=== PATIENT | female | born 1975 | race Caucasian/White ===

== ENCOUNTER 2016-07-10 19:59 | Emergency (ER) | payer OTHER ==
[~2016-07-10 19:59] MED LIST: ADV10050 INH; BENZ100C70 PO; GUAI118L94 PO; HYDR-3498 PO; IBUP-1542 PO; LORA-186 PO; MONT10TA21 PO; ONDA-43 PO; RANI150T9 PO
[2016-07-10] MEDS ORDERED: NPH10OT LEFT EAR (20:36)
--- NOTE | 2016-07-10 20:56 | ERD ---
ER Documentation Chief Complaint Date/Time DATE: 07/10/16 TIME: 20:54 Chief Complaint left ear pain x 2 days HPI This is a 41-year-old female presenting to the emergency department complaining of left ear canal pain for the past 2 days. Patient rates the pain as constant , mild to moderate in severity and describes it as dull. Patient states that she thought that she might have had something going to her left ear therefore she used a Q-tip 2 days ago. She denies any fevers, ear discharge, tinnitus, sore throat, chest pain or shortness of breath. ROS 10 systems reviewed and are negative except as per history of present illness. Medications Home Meds Active Scripts Neomycin/Polymyxin/Hydrocort* (Cortisporin* Otic) 10 Ml Susp, 4 DROP LEFT EAR QID for 7 Days, EA Prov:JADEN RAI PA-C 07/10/16 Hydrocodone Bit-Acetaminophen* ([place]*) 5-325 Mg Tab, 1 TAB PO QHS Y for PAIN, # 10 TAB 0 Refills Prov:NAVNEET BABIN PA-C 02/24/15 Ibuprofen* (Motrin*) 600 Mg Tab, 600 MG PO BID, #30 TAB 0 Refills Prov:NAVNEET BABIN PA-C 02/24/15 Guaifenesin-Codeine Phosphate* (Guaifenesin* with Codeine Liq) 120 Ml Liquid, 5 ML PO Q6 Y for COUGH, #60 Prov:REGIS AMADOR NP 08/23/14 Reported Medications Montelukast Sodium* (Singulair*) 10 Mg Tablet, 10 MG PO HS, TAB 07/06/14 Ranitidine Hcl* (Zantac*) Unknown Strength Tablet, PO, TAB 07/06/14 Ondansetron Hcl* (Zofran*) Unknown Strength Tab, PO Q4H Y for NAUSEA AND OR VOMITING, TAB 07/06/14 Benzonatate* (Tessalon Perle*) 100 Mg Capsule, 100 MG PO Q8H Y for COUGH, CAP 07/06/14 Loratadine* (Claritin*) 10 Mg Tablet, 10 MG PO DAILY, TAB 07/06/14 Salmeterol Xinaf-Fluticasone* (Advair*) Unknown Strength Inhaler, INH BID, INH 07/06/14 Allergies Allergies: Coded Allergies: No Known Drug Allergies (Verified Allergy, Unknown, 07/06/14) PMhx/Soc Anesthesia Reaction: No Hx Neurological Disorder: No Hx Respiratory Disorders: No Hx Cardiac Disorders: No Hx Psychiatric Problems: No Hx Miscellaneous Medical Probl: No Hx Alcohol Use: No Hx Substance Use: No Hx Tobacco Use: No Physical Exam Physical Exam Const: Well-developed well-nourished no acute distress Head: Atraumatic Eyes: Normal Conjunctiva ENT: Normal Nose and Mouth. Mild pinna and tragus tenderness of the left ear, mild inflammation the left ear Neck: Full range of motion..~ No meningismus. Resp: Clear to auscultation bilaterally Cardio: Regular rate and rhythm, no murmurs Abd: Soft, non tender, non distended. Normal bowel sounds Skin: No petechiae or rashes Back: No midline or flank tenderness Ext: No cyanosis, or edema Neur: Awake and alert Psych: Normal Mood and Affect Procedures/MDM This is a 41-year-old female presenting to the emergency department complaining of left ear pain which is likely due to irritation from Q-tip versus early otitis externa. There was no evidence of otitis media, mastoiditis, cholesteatoma, and tympanic membrane perforation. Patient will be empirically treated for possible otitis externa left ear. I discussed to follow-up with her primary care physician for further evaluation management DISPOSITION: hemodynamically stable for home. Prescription for Cortisporin was given to patient. Discussed to return to the ED for worsening condition or not improving as expected. Patient's guardian agreed and understood with this plan Departure Diagnosis: Primary Impression: Left ear pain Condition: Stable Patient Instructions: Earache W/O Infection (Adult), External Ear Infection ( Adult) Referrals: JOSH EVANS (PCP) Additional Instructions: FOLLOW UP WITH YOUR PRIMARY CARE PHYSICIAN TOMORROW.Return to this facility if you are not improving as expected. Take all medicines as directed. Return to this facility if you are not improving as expected. JADEN RAI PA-C July 10, 2016 20:56
== END 2016-07-10 20:37 | disposition home or self-care (01) ==
LOC: E/R 19:59
DX: H92.02 Otalgia, left ear (principal)
CPT/HCPCS: 99283

== ENCOUNTER 2016-09-06 14:08 | Inpatient (IN) | payer OTHER ==
[~2016-09-06] VITALS: Ht 154.9 cm; Wt 101.9 kg
[~2016-09-06 14:08] MED LIST changes: +NPH10OT LEFT EAR
[2016-09-06] MEDS ORDERED: ALBUTEROL 0.5% (NEB) 2.5 MG/0.5 ML AMP INH STA ×2 (15:28→18:45)
[2016-09-06] MEDS ORDERED: ASPIRIN 325 MG TAB PO STA (15:28)
[2016-09-06] MEDS ORDERED: METHYLPREDNISOLONE 125 MG INJ IV STA (15:28)
[2016-09-06] MEDS ORDERED: SOD CHLORIDE 0.9% 1,000 ML IV STA (15:28)
[2016-09-06] MEDS ORDERED: IPRATROPIUM (NEB) 0.5 MG/2.5 ML AMP INH STA ×2 (15:28→18:45)
[2016-09-06] MEDS ORDERED: LORAZEPAM 2 MG INJ IV ONE (15:30)
--- NOTE | 2016-09-06 15:46 | ERD ---
ER Documentation Chief Complaint Date/Time DATE: 09/06/16 TIME: 15:31 Chief Complaint MID CHEST WALL CONSTANT PRESSURE/NON-RAD/NON-PROVOKED/NAUSEA/DIZZY X7AM HPI This is a 41-year-old female with a known history of asthma. The patient indicates that about 5 hours prior to arrival she developed some difficulty breathing which was consistent her previous asthma exacerbations. She utilized her nebulizer treatments with no improvement of her symptoms. The dyspnea persisted and she started to become very anxious, nervous, with palpitations. She started to feel chest pain which she described as stabbing in nature to both the left and right chest wall. There is no chest pressure that radiates to the neck arm back or jaw. The patient stated she also started to feel very dizzy in addition with her difficulty breathing. She has had no recent travel or prolonged immobilization and denies any shortness of breath at rest or exertion. She never required intubation in the past for asthma but indicates she has had multiple previous hospital admissions and emergency room visits for her asthma. She denies a productive or nonproductive cough. She has had no fevers or shaking or chills. She denies any numbness or tingling of her upper or lower extremities ROS All systems reviewed and are negative except as per history of present illness. Medications Home Meds Active Scripts Prednisone* (Prednisone*) 20 Mg Tab, 60 MG PO DAILY for 5 Days, TAB Prov:PETTY GAGE 09/06/16 Neomycin/Polymyxin/Hydrocort* (Cortisporin* Otic) 10 Ml Susp, 4 DROP LEFT EAR QID for 7 Days, EA Prov:JADEN RAI PA-C 07/10/16 Hydrocodone Bit-Acetaminophen* ([place]*) 5-325 Mg Tab, 1 TAB PO QHS Y for PAIN, # 10 TAB 0 Refills Prov:NAVNEET BABIN PA-C 02/24/15 Ibuprofen* (Motrin*) 600 Mg Tab, 600 MG PO BID, #30 TAB 0 Refills Prov:NAVNEET BABIN PA-C 02/24/15 Guaifenesin-Codeine Phosphate* (Guaifenesin* with Codeine Liq) 120 Ml Liquid, 5 ML PO Q6 Y for COUGH, #60 Prov:REGIS AMADOR NP 08/23/14 Reported Medications Montelukast Sodium* (Singulair*) 10 Mg Tablet, 10 MG PO HS, TAB 07/06/14 Ranitidine Hcl* (Zantac*) Unknown Strength Tablet, PO, TAB 07/06/14 Ondansetron Hcl* (Zofran*) Unknown Strength Tab, PO Q4H Y for NAUSEA AND OR VOMITING, TAB 07/06/14 Benzonatate* (Tessalon Perle*) 100 Mg Capsule, 100 MG PO Q8H Y for COUGH, CAP 07/06/14 Loratadine* (Claritin*) 10 Mg Tablet, 10 MG PO DAILY, TAB 07/06/14 Salmeterol Xinaf-Fluticasone* (Advair*) Unknown Strength Inhaler, INH BID, INH 07/06/14 Allergies Allergies: Coded Allergies: No Known Drug Allergies (Verified Allergy, Unknown, 07/06/14) PMhx/Soc Anesthesia Reaction: No Hx Neurological Disorder: No Hx Respiratory Disorders: No Hx Cardiac Disorders: No Hx Psychiatric Problems: No Hx Miscellaneous Medical Probl: No Hx Alcohol Use: No Hx Substance Use: No Hx Tobacco Use: No Physical Exam Vitals Vital Signs Date Time Temp Pulse Resp B/P Pulse Ox O2 Delivery O2 Flow Rate FiO2 09/06/16 22:21 117 19 114/57 96 Nasal Cannula 2.0 09/06/16 20:28 99 18 115/70 100 Mask 09/06/16 19:21 83 16 99 Nasal Cannula 2.0 09/06/16 18:29 92 16 113/69 98 Room Air 09/06/16 16:17 81 17 144/88 96 Mask 10.0 09/06/16 16:00 79 16 100 Nasal Cannula 3.0 09/06/16 14:25 98.0 73 18 141/83 98 Physical Exam Constitutional:Well-developed. Well-nourished. Patient is very tearful in mild acute respiratory distress. HEENT:Normocephalic. Atraumatic.Pupils were equal round reactive to light. Moist mucous membranes.No tonsillar exudates. Neck: No nuchal rigidity. No lymphadenopathy. No posterior cervical spine tenderness or step-offs. Respiratory: Not using accessory muscles of respiration.Lungs were clear to auscultation bilaterally. No rhonchi. No rales. Wheezing on end auscultation bilaterally. Patient speaking in full complete sentences. Cardiovascular: Regular rate regular rhythm.No murmurs. No rubs were appreciated.S1, S2 normal. Distal pulses are palpable 2+ bilaterally. Reproducible bilateral chest wall tenderness with no crepitus no ecchymosis no flail chest GI: Abdomen was soft. Nontender. Non Distended. No pulsatile abdominal masses or bruits. No rebound. No guarding. Bowel sounds were present and normal. Muscle skeletal: Full range of motion of both the upper and lower extremities bilaterally.Normal muscle tone.No assymetrical calf tenderness or swelling. Skin: No petechia, no purpura. No lesions on the palms or the soles of the feet. No maculopapular rash. NEURO: Patient was alert, awake, orientated x3.No facial droop. Gait observed and normal with no ataxia.Speech had regular rate and rhythm. No focal neurological deficits. Result Diagram: 09/06/16 1545 09/06/16 1545 Results 24 hrs Laboratory Tests Test 09/06/16 15:45 White Blood Count 11.010^3/ul Red Blood Count 4.4010^6/ul Hemoglobin 12.7g/dl Hematocrit 37.7% Mean Corpuscular Volume 85.7fl Mean Corpuscular Hemoglobin 28.9pg Mean Corpuscular Hemoglobin Concent 33.7g/dl Red Cell Distribution Width 13.9% Platelet Count 86432^3/UL Mean Platelet Volume 11.5fl Neutrophils % 53.3% Lymphocytes % 34.5% Monocytes % 10.2% Eosinophils % 1.2% Basophils % 0.5% Nucleated Red Blood Cells % 0.0/100WBC Neutrophils # 5.910^3/ul Lymphocytes # 3.810^3/ul Monocytes # 1.110^3/ul Eosinophils # 0.110^3/ul Basophils # 0.110^3/ul Nucleated Red Blood Cells # 0.010^3/ul Sodium Level 142mmol/L Potassium Level 3.2mmol/L Chloride Level 103mmol/L Carbon Dioxide Level 21mmol/L Anion Gap 21 Blood Urea Nitrogen 12mg/dl Creatinine 0.74mg/dl Glucose Level 127mg/dl Calcium Level 9.2mg/dl Total Bilirubin 0.2mg/dl Direct Bilirubin 0.00mg/dl Indirect Bilirubin 0.2mg/dl Aspartate Amino Transf (AST/SGOT) 16IU/L Alanine Aminotransferase (ALT/SGPT) 29IU/L Alkaline Phosphatase 83IU/L Troponin I < 0.012ng/ml Total Protein 7.8g/dl Albumin 4.9g/dl Globulin 2.90g/dl Albumin/Globulin Ratio 1.68 Current Medications Medications (Trade) Dose Ordered Sig/Edward Route PRN Reason Start Time Stop Time Status Last Admin Dose Admin Sodium Chloride (NS) 1,000 ml @ 1,000 mls/hr Q1H STAT IV 09/06/16 15:28 09/06/16 16:27 DC 09/06/16 15:42 Albuterol (Proventil 0.5% (Neb)) 10 mg ONCE STAT INH 09/06/16 15:28 09/06/16 15:32 DC 09/06/16 16:00 Ipratropium [place] (Atrovent 0.02% (Neb)) 1 mg ONCE STAT INH 09/06/16 15:28 09/06/16 15:32 DC 09/06/16 16:00 Methylprednisolone Sodium Succinate (Solu-Medrol) 125 mg ONCE STAT IV 09/06/16 15:28 09/06/16 15:32 DC 09/06/16 15:41 Aspirin (Aspirin) 325 mg ONCE STAT PO 09/06/16 15:28 09/06/16 15:32 DC 09/06/16 15:41 Lorazepam (Ativan) 1 mg ONCE ONCE IV 09/06/16 15:30 09/06/16 15:32 DC 09/06/16 15:41 Potassium Chloride (Klor-Con 10) 10 meq ONCE ONCE PO 09/06/16 18:00 09/06/16 18:01 DC 09/06/16 18:58 Ketorolac Tromethamine (Toradol) 30 mg ONCE STAT IV 09/06/16 18:32 09/06/16 18:34 DC 09/06/16 18:59 Morphine Sulfate (morphine) 4 mg ONCE STAT IV 09/06/16 18:45 09/06/16 18:46 DC 09/06/16 18:59 Ondansetron HCl (Zofran Inj) 4 mg ONCE STAT IV 09/06/16 18:45 09/06/16 18:46 DC 09/06/16 18:58 Albuterol (Proventil 0.5% (Neb)) 10 mg ONCE STAT INH 09/06/16 18:45 09/06/16 18:46 DC 09/06/16 19:21 Ipratropium [place] (Atrovent 0.02% (Neb)) 1 mg ONCE STAT INH 09/06/16 18:45 09/06/16 18:46 DC 09/06/16 19:21 Aspirin (Aspirin) 325 mg ONCE ONCE PO 09/06/16 22:30 09/06/16 22:31 DC 09/06/16 23:09 Ondansetron HCl (Zofran Inj) 4 mg ER BRIDGE PRN IV NAUSEA AND/OR VOMITING 09/06/16 23:00 09/07/16 22:59 Acetaminophen (Tylenol Tab) 650 mg ER BRIDGE PRN PO MILD PAIN/FEVER 09/06/16 23:00 09/07/16 22:59 Procedures/MDM The patient presented to the emergency department with dyspnea. My differential diagnosis included but was not limited to upper airway obstruction, CHF, pulmonary embolism, cardiac ischemia, pneumonia, pneumothorax, anemia, drug overdose, pulmonary edema, COPD or asthma. Patient admitted placed on a library monitor continuous pulse oximetry and IV access was attempted by nursing staff. I did feel the patient was experiencing a mild asthma exacerbation and therefore was immediately started on continuous albuterol and Atrovent 125 mg of Solu-Medrol. The patient was also feeling very anxious and was given 1 mg of Ativan IV she does state she has a history of an anxiety disorder. The patient presented to the emergency department complaining of chest pain which she described as sharp in nature occurred after her difficulty breathing. My clinical evaluation and workup was to distinguish minor causes of chest pain from acute life threatening cardiopulmonary causes such as myocardial infarction , pulmonary embolism, aortic dissection, esophageal rupture, cardiac tamponade, The patient was placed on a library monitor, continuous pulse oximetry and IV access established by nursing staff. The patients chest pain was reproduced by palpation and horizontal flexion of the arms. It was my clinical impression that the pain was a result of inflammation of the skin and subcutaneous structures of the chest wall versus myocardial ischemia. I felt the patient had low-risk chest pain and could therefore be safely discharged with close follow-up. 12 Lead EKG tracing ordered and reviewed by myself showed: Normal sinus rhythm of 79 bpm and no arrhythmia. OR interval normal. QRS duration normal. No ST segment elevation. Incomplete right bundle branch block with an RSR prime pattern in V1 the No ST segment depression. No changes consistent with acute ischemia. Observation Note: Time: 7 hours Family Hx: No Hypertension Evaluation: Multiple exams showed minimal improvement of the patient's symptoms. She still felt as it was difficult for her to breathe and requested further nebulizer treatments. Therefore the patient will be admitted to the hospitalist Dr. Arnold for observation for status asthmaticus. Upon admission she was satting at 100% on room air still continued to have wheezing on auscultation. She was not using accessory muscles of respiration airway was intact. Departure Diagnosis: Primary Impression: Status asthmaticus Asthma severity: mild intermittent Qualified Code: J45.22 - Mild intermittent asthma with status asthmaticus Condition: Serious PETTY GAGE Sep 06, 2016 15:43
[2016-09-06 15:49] LABS: ADD SCAN DIFF NO
[2016-09-06 15:53] LABS: BASOPHIL # 0.1 10^3/ul (0.0-0.1); BASOPHILS % 0.5 % (0.0-2.0); EOSINOPHILS # 0.1 10^3/ul (0.0-0.5); EOSINOPHILS % 1.2 % (0.0-7.0); HEMATOCRIT 37.7 % (37.0-47.0); HEMOGLOBIN 12.7 g/dl (12.0-16.0); LYMPHOCYTES # 3.8 10^3/ul (0.8-2.9); LYMPHOCYTES % 34.5 % (15.0-51.0); MEAN CORPUSCULAR HEMOGLOBIN 28.9 pg (29.0-33.0); MEAN CORPUSCULAR HGB CONC 33.7 g/dl (32.0-37.0); MEAN CORPUSCULAR VOLUME 85.7 fl (82.0-101.0); MEAN PLATELET VOLUME 11.5 fl (7.4-10.4); MONOCYTE # 1.1 10^3/ul (0.3-0.9); MONOCYTES % 10.2 % (0.0-11.0); NEUTROPHIL # 5.9 10^3/ul (1.6-7.5); NEUTROPHILS % 53.3 % (39.0-77.0); PLATELET COUNT 385 10^3/UL (140-415); RED CELL DISTRIBUTION WIDTH 13.9 % (11.5-14.5)
[2016-09-06 16:19] LABS: ALANINE AMINOTRANSFERASE 29 IU/L (13-69); ALBUMIN 4.9 g/dl (3.3-4.9); ALBUMIN/GLOBULIN RATIO 1.68; ALKALINE PHOSPHATASE 83 IU/L (42-121); ANION GAP 21 (8-16); ASPARTATE AMINO TRANSFERASE 16 IU/L (15-46); BILIRUBIN,INDIRECT 0.2 mg/dl (0-1.1); BILIRUBIN,TOTAL 0.2 mg/dl (0.2-1.3); BLOOD UREA NITROGEN 12 mg/dl (7-20); CALCIUM 9.2 mg/dl (8.4-10.2); CARBON DIOXIDE 21 mmol/L (21-31); CHLORIDE 103 mmol/L (97-110); CREATININE 0.74 mg/dl (0.44-1.00); GLUCOSE 127 mg/dl (70-220); POTASSIUM 3.2 mmol/L (3.5-5.1); SODIUM 142 mmol/L (135-144); TOTAL PROTEIN 7.8 g/dl (6.1-8.1)
[2016-09-06 16:31] LABS: TROPONIN-I < 0.012 ng/ml (0.00-0.12)
[2016-09-06] MEDS ORDERED: POTASSIUM CHLORIDE (SR) 10 MEQ TAB PO ONE (18:00)
[2016-09-06] MEDS ORDERED: KETOROLAC 30 MG INJ IV STA (18:32)
[2016-09-06] MEDS ORDERED: morphine 4 MG/ML VIAL IV STA (18:45)
[2016-09-06] MEDS ORDERED: ONDANSETRON 4 MG INJ IV STA (18:45)
[2016-09-06] MEDS ORDERED: PRED20TA PO (22:10)
[2016-09-06] MEDS ORDERED: ASPIRIN 325 MG TAB PO ONE (22:30)
[2016-09-06] MEDS ORDERED: ACETAMINOPHEN 325 MG TAB PO PRN (23:00)
[2016-09-06] MEDS ORDERED: ONDANSETRON 4 MG INJ IV PRN (23:00)
[2016-09-07] VITALS (11 sets, daily range): BP systolic 102–124; BP diastolic 53–70; PULSE 78–102; RESP 14–20; Ht 154.9 cm; Wt 101.9 kg
[2016-09-07] MEDS ORDERED: NACL 0.9% 3 ML SYG IV SCH
[2016-09-07] MEDS ORDERED: DOCUSATE SODIUM 100 MG CAP PO PRN
[2016-09-07] MEDS ORDERED: ONDANSETRON 4 MG INJ IV PRN
[2016-09-07] MEDS ORDERED: ACETAMINOPHEN 325 MG TAB PO PRN
[2016-09-07] MEDS ORDERED: KETOROLAC 30 MG INJ IV STA (00:13)
[2016-09-07] MEDS: LEVALBUTEROL (NEB) 1.25 MG/0.5 ML AMP HHN SCH ×6 (01:36→20:10)
--- NOTE | 2016-09-07 02:47 | HP ---
Date/Time of Note Date/Time of Note DATE: 09/07/16 TIME: 02:33 Assessment/Plan VTE Prophylaxis VTE Prophylaxis Intervention: SCD's Assessment/Plan Chief Complaint/Hosp Course This is a 41 year female being admitted to the telemetry floor for: #1 acute asthma exacerbation: Patient did receive breathing treatments and steroids in the ED. She did show improvement from her initial presentation. At the current time she still has some mild wheezing on expiration. Will continue breathing treatments with Xopenex every 4 hours and she has a become tachycardic from the albuterol treatments. We will give her prednisone burst p.o. daily. No cough or sputum at this time and no fevers. Will hold off on any antibiotics. Continue home inhalers as well as loratadine and Singulair. Will obtain a chest x-ray in the a.m. #2 anxiety: Currently not on any medications for anxiety. Will continue to monitor. #3 leukocytosis: White blood cell count of 11. Patient has no fevers. This likely is reactive at this time. Will check x-ray in the morning. #4 hypokalemia: Repleted in the ED. We will check BMP tomorrow. #5 DVT and GI prophylaxis: SCDs, Protonix Further treatment strategy will be implemented as per the clinical course Problems: HPI/ROS Admit Date/Time Admit Date/Time Hx of Present Illness Chief complaint: Shortness of breath This is a 41-year-old female with a known history of asthma. The patient indicates that about 5 hours prior to arrival she developed some difficulty breathing which was consistent her previous asthma exacerbations. She utilized her nebulizer treatments with no improvement of her symptoms. The dyspnea persisted and she started to become very anxious, nervous, with palpitations. She started to feel chest pain which she described as stabbing in nature to both the left and right chest wall. There is no chest pressure that radiates to the neck arm back or jaw. The patient stated she also started to feel very dizzy in addition with her difficulty breathing. She has had no recent travel or prolonged immobilization and denies any shortness of breath at rest or exertion. She never required intubation in the past for asthma but indicates she has had multiple previous hospital admissions and emergency room visits for her asthma. She denies a productive or nonproductive cough. She has had no fevers or shaking or chills. She denies any numbness or tingling of her upper or lower extremities. Of note patient also states that she has been under a lot of stress at work and that is also contributing to her worsening of asthma she feels. Allergies: NKDA Medications: See CAIO SEN Const: As per HPI Eyes : No pain discharge or redness or change in visual acuity ENT: No pain, sore throat, congestion, congestion, dysphagia or discharge Respiratory: as per HPI Cardiovascular: No chest pain, palpitation, PND, or edema GI : no change in appetite, abdominal pain, nausea, vomiting, diarrhea, constipation, or change in the color his stool Genitourinary: No dysuria, hematuria, flank pain , discharge or CVA tenderness Musculoskeletal: No joint pain, back pain, neck pain, restricted range of motion in neck or joints Skin: No rash, bruising or hives Neuro: No headache, dizziness, syncope, seizure, focal weakness Endocrine: No polyuria, polydipsia, temperature intolerance Psych: as per HPI PMH/Family/Social Past Medical History Anxiety, asthma Past Surgical History 2, cholecystitis, left chest cyst removal Family History Significant Family History: asthma (Sister), diabetes (Brother) Social History Alcohol Use: none Smoking Status: Never smoker Drug Use: none Exam/Review of Systems Vital Signs Vitals Vital Signs Date Time Temp Pulse Resp B/P Pulse Ox O2 Delivery O2 Flow Rate FiO2 09/07/16 01:36 104 16 96 Nasal Cannula 1.0 09/07/16 01:16 130/78 09/06/16 14:25 98.0 Exam Exam General: Patient is lying in bed in mild distress, states that she is anxious, HEENT: Atraumatic, normocephalic. The pupils are equal, round and reactive. Extraocular motor are intact Neck: Supple with full range of motion. No rigidity or meningismus Chest: Tender to palpation along the anterior upper chest Lungs: Mild expiratory wheeze, good aeration Heart: Normal S1-S2, Regular rhythm and rate. No overt murmurs appreciated Abdomen: Soft , nontender, nondistended , bowel sounds are present. No guarding no rebound tenderness , No masses or organomegaly. No costovertebral temporal angle mass Extremities: Normal to inspection, no edema no cyanosis Neurologic: Normal mental status, speech normal, cranial nerves II through XII are intact, motor and sensory are intact, no focal weakness Labs Result Diagram: 09/06/16 1545 09/06/16 1545 Medications Medications Current Medications Ondansetron HCl (Zofran Inj) 4 mg Q6H PRN IV NAUSEA AND/OR VOMITING; Start at 00:00 Acetaminophen (Tylenol Tab) 650 mg Q6H PRN PO PAIN LEVEL 1-3 OR FEVER; Start at 00:00 Docusate Sodium (Colace) 100 mg Q12H PRN PO CONSTIPATION; Start 09/07/16 at 00: 00 Pantoprazole (Protonix Iv) 40 mg DAILY@06 IV ; Start 09/07/16 at 06:00 Prednisone (Prednisone) 50 mg DAILY PO ; Start 09/07/16 at 09:00 MERLYN MCCULLOUGH Sep 07, 2016 02:44
--- NOTE | 2016-09-07 02:59 | RADRPT ---
PROCEDURE: XR Chest. CLINICAL INDICATION: Asthma exacerbation. TECHNIQUE: Single frontal chest x-ray. COMPARISON: 10/18/2013 FINDINGS: The cardiomediastinal silhouette is unremarkable. There is no congestive heart failure.. There is h ypoventilation with increased bibasilar atelectasis. Small left basilar infiltrate cannot be exclude d.. There is no pleural effusion. There is no pneumothorax. The osseous structures are unremarkab le. IMPRESSION: Hypoventilation with increased bibasilar atelectasis. Cannot exclude small left basilar infiltrat e. RPTAT: [facility] .Teddy Bear MD, MD Date Time Electronically viewed and signed by .Teddy Bear MD, on 09/07/2016 02:59 .K/
[2016-09-07] MEDS: PANTOPRAZOLE 40 MG INJ IV SCH (06:05)
[2016-09-07 08:17] LABS: ADD SCAN DIFF NO
[2016-09-07 08:44] LABS: BASOPHILS % 0.1 % (0.0-2.0); HEMATOCRIT 36.3 % (37.0-47.0); HEMOGLOBIN 11.7 g/dl (12.0-16.0); LYMPHOCYTES # 1.2 10^3/ul (0.8-2.9); LYMPHOCYTES % 12.8 % (15.0-51.0); MEAN CORPUSCULAR HEMOGLOBIN 28.7 pg (29.0-33.0); MEAN CORPUSCULAR HGB CONC 32.2 g/dl (32.0-37.0); MEAN PLATELET VOLUME 11.4 fl (7.4-10.4); MONOCYTE # 0.9 10^3/ul (0.3-0.9); MONOCYTES % 9.1 % (0.0-11.0); NEUTROPHIL # 7.3 10^3/ul (1.6-7.5); NEUTROPHILS % 77.7 % (39.0-77.0); PLATELET COUNT 341 10^3/UL (140-415); RED BLOOD COUNT 4.08 10^6/ul (4.20-5.40); RED CELL DISTRIBUTION WIDTH 14.1 % (11.5-14.5); WHITE BLOOD COUNT 9.4 10^3/ul (4.8-10.8)
[2016-09-07] MEDS: predniSONE 50 MG TAB PO SCH (08:52)
[2016-09-07] MEDS: LORATADINE 10 MG TAB PO SCH (08:52)
[2016-09-07 08:53] LABS: ALBUMIN 3.9 g/dl (3.3-4.9); ALBUMIN/GLOBULIN RATIO 1.5; BILIRUBIN,INDIRECT 0.2 mg/dl (0-1.1); BILIRUBIN,TOTAL 0.2 mg/dl (0.2-1.3); CALCIUM 8.9 mg/dl (8.4-10.2); CREATININE 0.63 mg/dl (0.44-1.00); POTASSIUM 4.1 mmol/L (3.5-5.1); TOTAL PROTEIN 6.5 g/dl (6.1-8.1)
[2016-09-07] MEDS: SALMETEROL/FLUTICASONE 500/50 INHA INH SCH ×2 (08:53→21:06)
[2016-09-07] MEDS: HYDROCODONE/APAP (5/325) TAB PO PRN (21:06)
[2016-09-07] MEDS: MONTELUKAST 10 MG TAB PO SCH (22:16)
[2016-09-08] VITALS (11 sets, daily range): BP systolic 97–117; BP diastolic 51–70; PULSE 76–85; RESP 18–20
[2016-09-08] MEDS: LEVALBUTEROL (NEB) 1.25 MG/0.5 ML AMP HHN SCH ×6 (00:51→20:52)
[2016-09-08] MEDS: PANTOPRAZOLE 40 MG INJ IV SCH (06:36)
[2016-09-08 07:23] LABS: ADD SCAN DIFF NO
[2016-09-08 07:30] LABS: BASOPHILS % 0.2 % (0.0-2.0); EOSINOPHILS % 0.2 % (0.0-7.0); HEMATOCRIT 38.2 % (37.0-47.0); LYMPHOCYTES # 2.7 10^3/ul (0.8-2.9); LYMPHOCYTES % 20.2 % (15.0-51.0); MEAN CORPUSCULAR HEMOGLOBIN 28.6 pg (29.0-33.0); MEAN CORPUSCULAR HGB CONC 31.4 g/dl (32.0-37.0); MEAN PLATELET VOLUME 11.3 fl (7.4-10.4); MONOCYTE # 1.2 10^3/ul (0.3-0.9); MONOCYTES % 8.7 % (0.0-11.0); NEUTROPHIL # 9.3 10^3/ul (1.6-7.5); NEUTROPHILS % 70.3 % (39.0-77.0); PLATELET COUNT 365 10^3/UL (140-415); RED CELL DISTRIBUTION WIDTH 14.3 % (11.5-14.5); WHITE BLOOD COUNT 13.3 10^3/ul (4.8-10.8)
[2016-09-08 08:06] LABS: CHOL/HDL RATIO 3.7 RATIO; MAGNESIUM 2.1 mg/dl (1.7-2.5); PHOSPHORUS 3.6 mg/dl (2.5-4.9)
[2016-09-08 08:09] LABS: ALBUMIN 3.7 g/dl (3.3-4.9); ALBUMIN/GLOBULIN RATIO 1.54; BILIRUBIN,INDIRECT 0.1 mg/dl (0-1.1); BILIRUBIN,TOTAL 0.1 mg/dl (0.2-1.3); CALCIUM 8.7 mg/dl (8.4-10.2); CREATININE 0.66 mg/dl (0.44-1.00); TOTAL PROTEIN 6.1 g/dl (6.1-8.1)
[2016-09-08 08:51] LABS: THYROID STIMULATING HORMONE 0.666 MIU/L (0.465-4.680)
[2016-09-08] MEDS: LORATADINE 10 MG TAB PO SCH (08:57)
[2016-09-08] MEDS: SALMETEROL/FLUTICASONE 500/50 INHA INH SCH ×2 (08:57→21:16)
[2016-09-08] MEDS: predniSONE 50 MG TAB PO SCH (08:57)
--- NOTE | 2016-09-08 15:03 | PDOCDIS ---
Discharge Instructions DIAGNOSIS Discharge Diagnosis 1. Asthma exacerbation CONDITION Patient Condition: Stable HOME CARE INSTRUCTIONS: Diet Instructions: Low Fat /Cholesterol FOLLOW UP/APPOINTMENTS Follow-up Plan 1. Follow-up with your primary care provider within a week SHAE JAMES Sep 08, 2016 15:03
[2016-09-08] MEDS ORDERED: ADV50050 INH (15:08)
[2016-09-08] MEDS ORDERED: LEVA1.2523 HHN (15:08)
[2016-09-08] MEDS ORDERED: MONT10TA21 PO (15:08)
[2016-09-08] MEDS ORDERED: MONT10TA24 PO (15:08)
[2016-09-08] MEDS ORDERED: PRED50 PO (15:08)
--- NOTE | 2016-09-08 16:13 | PN ---
Date/Time of Note Date/Time of Note DATE: 09/08/16 TIME: 16:10 Assessment/Plan VTE Prophylaxis VTE Prophylaxis Intervention: SCD's Lines/Catheters [facility] Assessment/Plan Chief Complaint/Hosp Course Assessment and plan 1. Acute exacerbation asthma exacerbation. Still reports having dyspnea on exertion. No wheezing noted. Continue on bronchodilators. Continue on steroid treatment for now. Off O2. Encourage ambulation. 2. Anxiety. Will provide with anxiolytics as needed. 3. Leukocytosis likely secondary to steroid. If her blood present. Will monitor for now. 4. Suspect acute bronchitis. Continue on antibiotic therapy Disposition plan: Continue bronchodilators. Await for clinical improvement of respiratory status. Discussed plan of care with Dr. Leal Problems: Subjective 24 Hr Interval Summary Free Text/Dictation Still reports having some shortness of breath dyspnea on exertion Exam/Review of Systems Vital Signs Vitals Vital Signs Date Time Temp Pulse Resp B/P Pulse Ox O2 Delivery O2 Flow Rate FiO2 09/08/16 16:10 79 09/08/16 15:54 98.5 19 113/55 94 09/08/16 12:56 2.0 09/08/16 12:56 Nasal Cannula Intake and Output 09/07/16 09/07/16 09/08/16 15:00 23:00 07:00 Intake Total 1580 ml Balance 1580 ml Exam Constitutional: alert, oriented Head: normocephalic Eyes: nl conjunctiva Neck: supple, No jvd Respiratory: normal air movement, wheezing Gastrointestinal: non-tender, soft (Minimal) 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, nl mental status, nl speech Results Result Diagram: 09/08/16 0602 09/08/16 0602 Results 24 hrs Laboratory Tests Test 09/08/16 06:02 White Blood Count 13.3 #H Red Blood Count 4.20 Hemoglobin 12.0 Hematocrit 38.2 Mean Corpuscular Volume 91.0 Mean Corpuscular Hemoglobin 28.6 L Mean Corpuscular Hemoglobin Concent 31.4 L Red Cell Distribution Width 14.3 Platelet Count 365 Mean Platelet Volume 11.3 H Neutrophils % 70.3 Lymphocytes % 20.2 Monocytes % 8.7 Eosinophils % 0.2 Basophils % 0.2 Nucleated Red Blood Cells % 0.0 Neutrophils # 9.3 H Lymphocytes # 2.7 Monocytes # 1.2 H Eosinophils # 0.0 Basophils # 0.0 Nucleated Red Blood Cells # 0.0 Sodium Level 142 Potassium Level 4.0 Chloride Level 104 Carbon Dioxide Level 25 Anion Gap 17 H Blood Urea Nitrogen 12 Creatinine 0.66 Glucose Level 118 Hemoglobin A1c 5.7 Calcium Level 8.7 Phosphorus Level 3.6 Magnesium Level 2.1 Total Bilirubin 0.1 L Direct Bilirubin 0.00 Indirect Bilirubin 0.1 Aspartate Amino Transf (AST/SGOT) 22 Alanine Aminotransferase (ALT/SGPT) 26 Alkaline Phosphatase 56 Total Protein 6.1 Albumin 3.7 Globulin 2.40 Albumin/Globulin Ratio 1.54 Triglycerides Level 124 Cholesterol Level 163 LDL Cholesterol, Calculated 95 HDL Cholesterol 43 Cholesterol/HDL Ratio 3.7 Thyroid Stimulating Hormone (TSH) 0.666 Free Thyroxine 1.07 Medications Medications Current Medications Ondansetron HCl (Zofran Inj) 4 mg Q6H PRN IV NAUSEA AND/OR VOMITING; Start at 00:00 Acetaminophen (Tylenol Tab) 650 mg Q6H PRN PO PAIN LEVEL 1-3 OR FEVER Last administered on 09/07/16 16:51; Admin Dose 650 MG; Start 09/07/16 at 00:00 Docusate Sodium (Colace) 100 mg Q12H PRN PO CONSTIPATION; Start 09/07/16 at 00: 00 Pantoprazole (Protonix Iv) 40 mg DAILY@06 IV Last administered on 09/08/16 06: 36; Admin Dose 40 MG; Start 09/07/16 at 06:00 Prednisone (Prednisone) 50 mg DAILY PO Last administered on 09/08/16 08:57; Admin Dose 50 MG; Start 09/07/16 at 09:00 Acetaminophen/ Hydrocodone Bitart ([place] (5/325)) 1 tab QHS PRN PO PAIN Last administered on 09/07/16 21:06; Admin Dose 1 TAB; Start 09/07/16 at 03:00 Loratadine (Claritin) 10 mg DAILY PO Last administered on 09/08/16 08:57; Admin Dose 10 MG; Start 09/07/16 at 09:00 Montelukast Sodium (Singulair) 10 mg HS PO Last administered on 09/07/16 22:16 ; Admin Dose 10 MG; Start 09/07/16 at 21:00 Salmeterol Xinafoate/ Fluticasone (Advair 500/50 Diskus) 1 inh BID INH Last administered on 09/08/16t 08:57; Admin Dose 1 INH; Start 09/07/16 at 09:00 SHAE JAMES Sep 08, 2016 16:12
[2016-09-08] MEDS: HYDROCODONE/APAP (5/325) TAB PO PRN (16:15)
[2016-09-08] MEDS: AZITHROMYCIN 250 MG TAB PO SCH (19:00)
[2016-09-08] MEDS: MONTELUKAST 10 MG TAB PO SCH (21:16)
[2016-09-09] VITALS (12 sets, daily range): BP systolic 105–122; BP diastolic 57–70; PULSE 71–100; RESP 16–19
[2016-09-09] MEDS: LEVALBUTEROL (NEB) 1.25 MG/0.5 ML AMP HHN SCH ×6 (00:46→20:26)
[2016-09-09] MEDS: PANTOPRAZOLE 40 MG INJ IV SCH (06:32)
[2016-09-09 07:59] LABS: ADD SCAN DIFF NO
[2016-09-09 08:06] LABS: BASOPHIL # 0.1 10^3/ul (0.0-0.1); BASOPHILS % 0.4 % (0.0-2.0); EOSINOPHILS # 0.1 10^3/ul (0.0-0.5); EOSINOPHILS % 0.4 % (0.0-7.0); HEMATOCRIT 39.3 % (37.0-47.0); HEMOGLOBIN 12.5 g/dl (12.0-16.0); LYMPHOCYTES % 30.4 % (15.0-51.0); MEAN CORPUSCULAR HEMOGLOBIN 28.8 pg (29.0-33.0); MEAN CORPUSCULAR HGB CONC 31.8 g/dl (32.0-37.0); MEAN CORPUSCULAR VOLUME 90.6 fl (82.0-101.0); MEAN PLATELET VOLUME 11.1 fl (7.4-10.4); MONOCYTE # 1.3 10^3/ul (0.3-0.9); MONOCYTES % 9.7 % (0.0-11.0); NEUTROPHIL # 7.6 10^3/ul (1.6-7.5); NEUTROPHILS % 58.7 % (39.0-77.0); PLATELET COUNT 353 10^3/UL (140-415); RED BLOOD COUNT 4.34 10^6/ul (4.20-5.40); RED CELL DISTRIBUTION WIDTH 14.4 % (11.5-14.5)
[2016-09-09 08:32] LABS: CALCIUM 8.4 mg/dl (8.4-10.2); CREATININE 0.71 mg/dl (0.44-1.00)
[2016-09-09] MEDS: SALMETEROL/FLUTICASONE 500/50 INHA INH SCH ×2 (09:15→20:08)
[2016-09-09] MEDS: predniSONE 50 MG TAB PO SCH (09:15)
[2016-09-09] MEDS: LORATADINE 10 MG TAB PO SCH (09:15)
[2016-09-09] MEDS ORDERED: ALPRAZOLAM 0.25 MG TAB PO PRN (12:30)
[2016-09-09] MEDS: HYDROCODONE/APAP (5/325) TAB PO PRN ×2 (13:41→20:48)
[2016-09-09] MEDS: GUAIFENESIN/DM 5ML CUP PO PRN (13:42)
[2016-09-09] MEDS: AZITHROMYCIN 250 MG TAB PO SCH (16:32)
[2016-09-09] MEDS: MONTELUKAST 10 MG TAB PO SCH (20:07)
[2016-09-10] VITALS (10 sets, daily range): BP systolic 105–131; BP diastolic 60–77; PULSE 64–110; RESP 17–19
[2016-09-10] MEDS: LEVALBUTEROL (NEB) 1.25 MG/0.5 ML AMP HHN SCH ×4 (01:28→12:48)
[2016-09-10] MEDS: PANTOPRAZOLE 40 MG INJ IV SCH (06:03)
[2016-09-10] MEDS: LORATADINE 10 MG TAB PO SCH (08:07)
[2016-09-10] MEDS: SALMETEROL/FLUTICASONE 500/50 INHA INH SCH (08:07)
[2016-09-10] MEDS: predniSONE 50 MG TAB PO SCH (08:08)
[2016-09-10] MEDS: GUAIFENESIN/DM 5ML CUP PO PRN (12:46)
[2016-09-10] MEDS ORDERED: AZIT500T2 PO (13:16)
--- NOTE | 2016-09-10 13:26 | PN ---
Date/Time of Note Date/Time of Note LATE ENTRY DATE: 09/09/16 Assessment/Plan VTE Prophylaxis VTE Prophylaxis Intervention: SCD's Lines/Catheters IV Catheter Type (from Nrs): Saline Lock Assessment/Plan Chief Complaint/Hosp Course Assessment and plan 1. Acute exacerbation asthma exacerbation. Still reports having dyspnea on exertion. No wheezing noted. Continue on bronchodilators. Continue on steroid treatment for now. Off O2. Encourage ambulation. 2. Anxiety. Will provide with anxiolytics as needed. 3. Leukocytosis likely secondary to steroid. If her blood present. Will monitor for now. 4. Suspect acute bronchitis. Continue on antibiotic therapy Disposition plan: Continue bronchodilators. still with dyspnea on exertion. cont current tx. if breathing improves. anticipate d/c within the next 24 hours Discussed plan of care with Dr. Leal Problems: Subjective 24 Hr Interval Summary Free Text/Dictation still reports having some shortness of breath Exam/Review of Systems Vital Signs Vitals Vital Signs Date Time Temp Pulse Resp B/P Pulse Ox O2 Delivery O2 Flow Rate FiO2 09/10/16 12:49 80 18 97 21 09/10/16 11:52 98.3 131/66 09/10/16 04:58 Nasal Cannula 2.0 Intake and Output 09/09/16 09/09/16 09/10/16 14:59 22:59 06:59 Intake Total 900 ml 250 ml Balance 900 ml 250 ml Exam Constitutional: alert, oriented Psych: no complaints Neck: supple, No jvd Respiratory: No wheezing Cardiovascular: regular rate and rhythm Gastrointestinal: non-tender, soft Musculoskeletal: nl extremities to inspection, nl gait and stance 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, nl mental status, nl speech Results Result Diagram: 09/09/1616 09/09/16 0716 Medications Medications Current Medications Ondansetron HCl (Zofran Inj) 4 mg Q6H PRN IV NAUSEA AND/OR VOMITING; Start at 00:00 Acetaminophen (Tylenol Tab) 650 mg Q6H PRN PO PAIN LEVEL 1-3 OR FEVER Last administered on 09/07/16t 16:51; Admin Dose 650 MG; Start 09/07/16 at 00:00 Docusate Sodium (Colace) 100 mg Q12H PRN PO CONSTIPATION; Start 09/07/16 at 00: 00 Pantoprazole (Protonix Iv) 40 mg DAILY@06 IV Last administered on 09/10/16 06: 03; Admin Dose 40 MG; Start 09/07/16 at 06:00 Prednisone (Prednisone) 50 mg DAILY PO Last administered on 09/10/16 08:08; Admin Dose 50 MG; Start 09/07/16 at 09:00 Acetaminophen/ Hydrocodone Bitart ([place] (5/325)) 1 tab QHS PRN PO PAIN Last administered on 09/09/16 20:48; Admin Dose 1 TAB; Start 09/07/16 at 03:00 Loratadine (Claritin) 10 mg DAILY PO Last administered on 09/10/16 08:07; Admin Dose 10 MG; Start 09/07/16 at 09:00 Montelukast Sodium (Singulair) 10 mg HS PO Last administered on 09/09/16 20:07 ; Admin Dose 10 MG; Start 09/07/16 at 21:00 Salmeterol Xinafoate/ Fluticasone (Advair 500/50 Diskus) 1 inh BID INH Last administered on 09/10/16 08:07; Admin Dose 1 INH; Start 09/07/16 at 09:00 Azithromycin (Zithromax) 500 mg Q24H PO Last administered on 09/09/16 16:32; Admin Dose 500 MG; Start 09/08/16 at 16:30 Guaifenesin/ Dextromethorphan (Robitussin Dm Liquid Cup) 10 ml Q4H PRN PO cough Last administered on 09/10/16 12:46; Admin Dose 10 ML; Start 09/08/16 at 16:30 Alprazolam (Xanax) 0.25 mg Q8H PRN PO ANXIETY Last administered on 09/09/16 20 :48; Admin Dose 0.25 MG; Start 09/09/16 at 12:30 SHAE JAMES Sep 10, 2016 13:25
--- NOTE | 2016-09-10 15:27 | DS ---
Date/Time of Note Date/Time of Note DATE: 09/10/16 TIME: 15:16 Discharge Summary Admission/Discharge Info Admit Date/Time Sep 06, 2016 at 22:56 Discharge Date/Time Discharge Diagnosis 1. Asthma exacerbation Patient Condition: Stable Hospital Course This is a 41-year-old female with history of asthma who came to [facility] due to reports of shortness of breath. Patient reported that she used her nebulizer with no improvement at home. She became anxious because of her shortness of breath she also reported having some associated chest pain with her asthma. She did come to [facility] and was found to have an asthma exacerbation. She was provided with bronchodilators as well as steroid treatment and she was initially on oxygen for which she was titrated off. She did report her chest pain did get better after breathing treatments as well as steroid treatment. She did have some anxiety for which she was offered anxiolytics as needed. During her course of stay she did improve. Her breathing did improve and she was able to ambulate better with better breathing. She was also with some acute bronchitis for which she is provided with antibiotic. During the course of stay she did improve. She was instructed to follow-up with the primary care provider within a week. The plan of care was discussed with the patient and patient did verbalize her understanding. On the day of discharge patient was in stable condition Discussed plan of care with Dr. Leal [facility] Active Scripts Azithromycin* (Zithromax* Tri-Marlo) 500 Mg Tablet, 500 MG PO DAILY for 3 Days, TAB Prov:SHAE JAMES 09/10/16 Montelukast Sodium* (Montelukast Sodium*) 10 Mg Tablet, 10 MG PO QHS, #30 TAB Prov:SHAE JAMES 09/08/16 Prednisone (Prednisone) 50 Mg Tab, 10 MG PO DAILY, #30 TAB 1. take 40mg by mouth daily for 3 days 2. then 30mg by mouth daily for 3 days 3. then 20mg by mouth daily for 3 days 4. then 10mg by mouth daily for 3 days Prov:SHAE JAMES 09/08/16 Salmeterol Xinaf-Fluticasone* (Advair*) 500/50 Diskus Inhaler, 1 INH INH BID, # 1 INH Prov:SHAE JAMES 09/08/16 Levalbuterol Hcl* (Xopenex*) 1.25 Mg/0.5 Ml Vial.neb, 1.25 MG HHN Q4H RESP THERAPY, #1 INH Prov:SHAE JAMES 09/08/16 Montelukast Sodium* (Singulair*) 10 Mg Tablet, 10 MG PO HS for 30 Days, TAB Prov:SHAE JAMES 09/08/16 Neomycin/Polymyxin/Hydrocort* (Cortisporin* Otic) 10 Ml Susp, 4 DROP LEFT EAR QID for 7 Days, EA Prov:JADEN RAI PA-C 07/10/16 Hydrocodone Bit-Acetaminophen* ([place]apavine*) 5-325 Mg Tab, 1 TAB PO QHS Y for PAIN, # 10 TAB 0 Refills Prov:NAVNEET BABIN PA-C 02/24/15 Ibuprofen* (Motrin*) 600 Mg Tab, 600 MG PO BID, #30 TAB 0 Refills Prov:NAVNEET BABIN PA-C 02/24/15 Guaifenesin-Codeine Phosphate* (Guaifenesin* with Codeine Liq) 120 Ml Liquid, 5 ML PO Q6 Y for COUGH, #60 Prov:REGIS AMADOR NP 08/23/14 Reported Medications Ranitidine Hcl* (Zantac*) Unknown Strength Tablet, PO, TAB 07/06/14 Ondansetron Hcl* (Zofran*) Unknown Strength Tab, PO Q4H Y for NAUSEA AND OR VOMITING, TAB 07/06/14 Benzonatate* (Tessalon Perle*) 100 Mg Capsule, 100 MG PO Q8H Y for COUGH, CAP 07/06/14 Discontinued Reported Medications Loratadine* (Claritin*) 10 Mg Tablet, 10 MG PO DAILY, TAB 07/06/14 Salmeterol Xinaf-Fluticasone* (Advair*) Unknown Strength Inhaler, INH BID, INH 07/06/14 Discontinued Scripts Prednisone* (Prednisone*) 20 Mg Tab, 60 MG PO DAILY for 5 Days, TAB Prov:PETTY GAGE 09/06/16 Follow-up Plan CONDITION Patient Condition: Stable HOME CARE INSTRUCTIONS: Diet Instructions: Low Fat /Cholesterol FOLLOW UP/APPOINTMENTS Follow-up Plan 1. Follow-up with your primary care provider within a week Primary Care Provider SHAE Swann Sep 10, 2016 15:27
[2016-09-10] MEDS: AZITHROMYCIN 250 MG TAB PO SCH (16:30)
== END 2016-09-10 17:48 | disposition home or self-care (01) | DRG 203 ==
LOC: E/R 14:08 → MS4 22:56
PROVIDERS: ADMIT Family Medicine; ATTEND Family Medicine
DX: J45.901 Unspecified asthma with (acute) exacerbation (principal); E87.6 Hypokalemia; J20.9 Acute bronchitis, unspecified; F41.9 Anxiety disorder, unspecified; Z99.89 Dependence on other enabling machines and devices
CPT/HCPCS: 71010; 80048; 80053; 80061; 83036; 83735; 84100; 84439; 84443; 84484; 85025; 93005; 94640; 94644; 94645; 94664; 96374; 96375; C9113; J1885; J2060; J2270; J2405; J2930; J7030; J7512

== ENCOUNTER 2018-04-11 16:11 | Emergency (ER) | payer OTHER ==
[~2018-04-11] VITALS: Ht 157.5 cm; Wt 109.4 kg
[~2018-04-11 16:11] MED LIST changes: -ADV10050 INH; +ADV50050 INH; +AZIT500T2 PO; +BENZ-6 PO; -BENZ100C70 PO; +LEVA1.2523 HHN; -LORA-186 PO; +MONT10TA24 PO; -ONDA-43 PO; +ONDA4TAB13 PO; +PRED50 PO; +RANI150T35 PO; -RANI150T9 PO
[2018-04-11 16:14] VITALS: Ht 157.5 cm; Wt 109.4 kg
[2018-04-11] MEDS ORDERED: ASPIRIN 325 MG TAB PO STA (19:17)
[2018-04-11] MEDS ORDERED: IPRATROPIUM (NEB) 0.5 MG/2.5 ML AMP INH STA (19:52)
[2018-04-11] MEDS ORDERED: ALBUTEROL 0.5% (NEB) 2.5 MG/0.5 ML AMP INH STA (19:52)
[2018-04-11] MEDS ORDERED: METHYLPREDNISOLONE 125 MG INJ IV STA (19:52)
--- NOTE | 2018-04-11 19:57 | ERD ---
ER Documentation Chief Complaint Chief Complaint pt is bib family with c/o chest pain starting 2 days ago HPI This is a very pleasant 42-year-old female with a known history of severe asthma. The patient indicates that for the past 48 hours she has been having severe difficulty breathing. She has been using her Advair at home but it is not improved her symptoms. She indicates that she is also been experiencing chest pain. She states the chest pain is a pleuritic-like pain. She states she gets this whenever she has severe asthma attacks. She denies any chest pressure. She has no tobacco use and denies any family history of coronary artery disease. She states she is never been intubated in the past but has had multiple hospital admissions for asthma attacks. She denies a productive or nonproductive cough. ROS All systems reviewed and are negative except as per history of present illness. Medications Home Meds Active Scripts Azithromycin* (Zithromax* Tri-Marlo) 500 Mg Tablet, 500 MG PO DAILY for 3 Days, TAB Prov:SHAE JAMES 09/10/16 Montelukast Sodium* (Montelukast Sodium*) 10 Mg Tablet, 10 MG PO QHS, #30 TAB Prov:REGSHAE HICKMAN 09/08/16 Prednisone (Prednisone) 50 Mg Tab, 10 MG PO DAILY, #30 TAB 1. take 40mg by mouth daily for 3 days 2. then 30mg by mouth daily for 3 days 3. then 20mg by mouth daily for 3 days 4. then 10mg by mouth daily for 3 days Prov:REGSHAE HICKMAN 09/08/16 Salmeterol Xinaf-Fluticasone* (Advair*) 500/50 Diskus Inhaler, 1 INH INH BID, #1 INH Prov:REGIDOSHAE Hinojosa 09/08/16 Levalbuterol Hcl* (Xopenex*) 1.25 Mg/0.5 Ml Vial.neb, 1.25 MG HHN Q4H RESP THERAPY, #1 INH Prov:REGDEBRSHAE 09/08/16 Montelukast Sodium* (Singulair*) 10 Mg Tablet, 10 MG PO HS for 30 Days, TAB Prov:REGIDORSHAE 09/08/16 Neomycin/Polymyxin/Hydrocort* (Cortisporin* Otic) 10 Ml Susp, 4 DROP LEFT EAR QID for 7 Days, EA Prov:JADEN RAI PA-C 07/10/16 Hydrocodone Bit-Acetaminophen* ([place]*) 5-325 Mg Tab, 1 TAB PO QHS PRN for PAIN, #10 TAB 0 Refills Prov:NAVNEET BABIN PA-C 02/24/15 Ibuprofen* (Motrin*) 600 Mg Tab, 600 MG PO BID, #30 TAB 0 Refills Prov:NAVNEET BABIN PA-C 02/24/15 Guaifenesin-Codeine Phosphate* (Guaifenesin* with Codeine Liq) 120 Ml Liquid, 5 ML PO Q6 PRN for COUGH, #60 Prov:REGIS AMADOR NP 08/23/14 Reported Medications Ranitidine Hcl* (Zantac*) Unknown Strength Tablet, PO, TAB 07/06/14 Ondansetron Hcl* (Zofran*) Unknown Strength Tab, PO Q4H PRN for NAUSEA AND OR VOMITING, TAB 07/06/14 Benzonatate* (Tessalon Perle*) 100 Mg Capsule, 100 MG PO Q8H PRN for COUGH, CAP 07/06/14 Allergies Allergies: Coded Allergies: No Known Drug Allergies (Verified Allergy, Unknown, 07/06/14) PMhx/Soc History of Surgery: Yes (C SECTION X 2) Anesthesia Reaction: No Hx Neurological Disorder: No Hx Respiratory Disorders: Yes (ASTHMA) Hx Cardiac Disorders: No Hx Psychiatric Problems: No Hx Miscellaneous Medical Probl: No Hx Alcohol Use: No Hx Substance Use: No Hx Tobacco Use: No Smoking Status: Never smoker Physical Exam Vitals Vital Signs Date Temp Pulse Resp B/P (MAP) Pulse Ox O2 O2 Flow FiO2 Time Delivery Rate 04/11/18 98.3 82 17 145/77 99 Room Air 19:33 (99) 04/11/18 98.3 74 16 139/88 99 16:14 (105) Physical Exam Constitutional:Well-developed. Well-nourished. HEENT:Normocephalic. Atraumatic.Pupils were equal round reactive to light. Moist mucous membranes.No tonsillar exudates. Neck: No nuchal rigidity. No lymphadenopathy. No posterior cervical spine tenderness or step-offs. Respiratory: Patient speaking in full complete sentences. Not using accessory muscles of respiration. Wheezing heard on end auscultation bilaterally. No stridor. Cardiovascular: Regular rate regular rhythm.No murmurs. No rubs were appreciated.S1, S2 normal. Distal pulses are palpable 2+ bilaterally. GI: Abdomen was soft. Nontender. Non Distended. No pulsatile abdominal masses or bruits. No rebound. No guarding. Bowel sounds were present and normal. Muscle skeletal: Full range of motion of both the upper and lower extremities bilaterally.Normal muscle tone.No assymetrical calf tenderness or swelling. Skin: No petechia, no purpura. No lesions on the palms or the soles of the feet. No maculopapular rash. NEURO: Patient was alert, awake, orientated x3.No facial droop. Gait observed and normal with no ataxia.Speech had regular rate and rhythm. No focal neurological deficits. Result Diagram: 04/11/18192404/11/181924 Results 24 hrs Laboratory Tests Test 04/11/18 19:25 04/11/18 19:33 White Blood Count 8.0 10^3/ul Red Blood Count 4.57 10^6/ul Hemoglobin 13.0 g/dl Hematocrit 40.3 % Mean Corpuscular Volume 88.2 fl Mean Corpuscular Hemoglobin 28.4 pg Mean Corpuscular Hemoglobin Concent 32.3 g/dl Red Cell Distribution Width 13.5 % Platelet Count 355 10^3/UL Mean Platelet Volume 10.9 fl Immature Granulocytes % 0.100 % Neutrophils % 58.9 % Lymphocytes % 28.4 % Monocytes % 8.8 % Eosinophils % 3.5 % Basophils % 0.3 % Nucleated Red Blood Cells % 0.0 /100WBC Immature Granulocytes # 0.010 10^3/ul Neutrophils # 4.7 10^3/ul Lymphocytes # 2.3 10^3/ul Monocytes # 0.7 10^3/ul Eosinophils # 0.3 10^3/ul Basophils # 0.0 10^3/ul Nucleated Red Blood Cells # 0.0 10^3/ul Prothrombin Time 12.4 Sec Prothrombin Time Ratio 1.0 INR International Normalized Ratio 0.91 Activated Partial Thromboplast Time Pending Urine Color YELLOW Urine Clarity CLEAR Urine pH 5.0 Urine Specific [place] 1.023 Urine Ketones NEGATIVE mg/dL Urine Nitrite NEGATIVE mg/dL Urine Bilirubin NEGATIVE mg/dL Urine Urobilinogen NEGATIVE mg/dL Urine Leukocyte Esterase NEGATIVE Elen/ul Urine Microscopic RBC 21 /HPF Urine Microscopic WBC 2 /HPF Urine Mucus FEW /HPF Urine Hemoglobin 3+ mg/dL Urine Glucose NEGATIVE mg/dL Urine Total Protein NEGATIVE mg/dl Sodium Level 141 mmol/L Potassium Level 3.5 mmol/L Chloride Level 100 mmol/L Carbon Dioxide Level 25 mmol/L Anion Gap 16 Blood Urea Nitrogen 9 mg/dl Creatinine 0.65 mg/dl Est Glomerular Filtrat Rate mL/min > 60 mL/min Glucose Level 143 mg/dl Calcium Level 9.0 mg/dl Total Bilirubin 0.1 mg/dl Direct Bilirubin 0.00 mg/dl Indirect Bilirubin 0.1 mg/dl Aspartate Amino Transf (AST/SGOT) 20 IU/L Alanine Aminotransferase (ALT/SGPT) 22 IU/L Alkaline Phosphatase 67 IU/L Creatine Kinase 59 IU/L Creatine Kinase Index Pending Creatinine Kinase MB (Mass) Pending Troponin I Pending B-Type Natriuretic Peptide Pending Total Protein 7.5 g/dl Albumin 4.1 g/dl Globulin 3.40 g/dl Albumin/Globulin Ratio 1.20 POC Beta HCG, Qualitative NEGATIVE Current Medications Medications Dose Sig/Edward Start Time Status Last (Trade) Ordered Route PRN Stop Time Admin Dose Reason Admin Aspirin 325 mg ONCE STAT 04/11/18 DC 04/11/18 (Aspirin) PO 19:17 19:27 04/11/18 19:19 Albuterol 10 mg ONCE STAT 04/11/18 DC (Proventil INH 19:52 0.5% (Neb)) 04/11/18 19:53 Ipratropium 1 mg ONCE STAT 04/11/18 DC [place] INH 19:52 (Atrovent 04/11/18 19:53 0.02% (Neb)) 125 mg ONCE STAT 04/11/18 DC Methylprednis IV 19:52 olone Sodium 04/11/18 19:53 Succinate (Solu-Medrol) Procedures/MDM Is a 42-year-old female who presented to the emergency department with difficul ty breathing and a known history of asthma. She was also complaining of chest pain but I do not feel this was a result of myocardial infarctions patient's troponin and EKG were within normal limits. She states that the chest pain is a pleuritic chest pain that is commonly accompanied with her severe asthma attacks. Chest radiograph showed no evidence of pneumonia. The patient received continuous nebulizer treatments of albuterol Atrovent and was also given 125 mg of Solu-Medrol. Her wheezing had completely resolved. She initially received aspirin in the emergency department but after doing physical exam and taking a history again my clinical suspicion was low for myocardial ischemia. I did feel the chest pain was more peripheral chest pain from her dyspnea and increased work of breathing. She also received intravenous morphine and Zofran. The patient was discharged home in fair condition. They were instructed to return to the emergency department at any time if there was any w orsening of their condition. The patient stated they would follow up with their PCP in the next 24-48 hours to initiate a suitable medication regimen under the care of their PCP as well as to allow their PCP to monitor any drug reactions. The patient was discharged home with prescriptions after they gave informed consent to the new medication. They were also fully informed by myself on the adverse effects and adverse drug interactions in order to provide adequate safeguards to prevent possible adverse reactions to medications. Departure Diagnosis: Primary Impression: Chest wall pain Additional Impression: Asthma exacerbation Asthma severity: mild Asthma persistence: intermittent Qualified Codes: J45.21 - Mild intermittent asthma with (acute) exacerbation Condition: Fair PETTY GAGE MD Apr 11, 2018 19:57
[2018-04-11] MEDS ORDERED: PRED20TA PO (20:02)
[2018-04-11 21:47] VITALS: BP 114/69; PULSE 78; RESP 16
== END 2018-04-11 21:48 | disposition home or self-care (01) ==
LOC: E/R 16:11
DX: R07.89 Other chest pain (principal); J45.21 Mild intermittent asthma with (acute) exacerbation
CPT/HCPCS: 36415; 71045; 80053; 81001; 81025; 82550; 82553; 83880; 84484; 85025; 85610; 85730; 93005; 94644; 96374; 99285; J2930